=== PATIENT | male | born 1960 | race Caucasian/White ===

== ENCOUNTER 2023-12-09 10:29 | Emergency (ER) | payer OTHER ==
[2023-12-09 10:53] VITALS: BP 125/76; PULSE 91; RESP 18; TEMP 98.7; BMI 33.0
[2023-12-09] MEDS ORDERED: LIDOCAINE 4% PATCH TP ONE (11:18)
[2023-12-09] MEDS ORDERED: ACETAMINOPHEN 500 MG TABLET (FP) ONE (11:19)
[2023-12-09] MEDS ORDERED: METHOCARBAMOL 500 MG TABLET ONE (11:19)
[2023-12-09] MEDS ORDERED: KETOROLAC TROMETHAMINE 30 MG/1 ML VIAL ONE (11:19)
[2023-12-09] MEDS: METHOCARBAMOL 500 MG TABLET PO ONE (11:30)
[2023-12-09] MEDS: KETOROLAC TROMETHAMINE 60 MG/2 ML VIAL IM ONE (11:30)
[2023-12-09] MEDS: LIDOCAINE 5% TOPICAL PATCH TP ONE (11:30)
[2023-12-09] MEDS: ACETAMINOPHEN 500 MG TABLET (FP) PO ONE (11:31)
[2023-12-09] MEDS ORDERED: diazePAM 5 MG TABLET ONE (13:14)
[2023-12-09] MEDS: diazePAM 5 MG TABLET PO ONE (13:16)
[2023-12-09] MEDS ORDERED: LIDOCAINE PATCH REMOVAL MC SCH (22:00)
== END 2023-12-09 15:25 | disposition home or self-care (01) ==
LOC: JER 10:29
PROC: 3E023GC Introduction of Other Therapeutic Substance into Muscle, Percutaneous Approach (ICD-10-PCS; principal; 2023-12-09)
DX: M54.2 Cervicalgia (principal); R20.2 Paresthesia of skin
CPT/HCPCS: 99284-25

== ENCOUNTER 2023-12-29 11:21 | Emergency (ER) | payer OTHER ==
[2023-12-29 11:27] VITALS: BP 135/83; PULSE 84; RESP 18; TEMP 98.1; BMI 33.0
[2023-12-29] MEDS ORDERED: predniSONE 20 MG TABLET (UD) ONE (12:59)
[2023-12-29] MEDS ORDERED: METHOCARBAMOL 500 MG TABLET ONE (12:59)
[2023-12-29] MEDS: METHOCARBAMOL 500 MG TABLET PO ONE (13:00)
[2023-12-29] MEDS: predniSONE 20 MG TABLET (UD) PO ONE (13:00)
== END 2023-12-29 13:33 | disposition home or self-care (01) ==
LOC: JERFT 11:21
DX: M54.2 Cervicalgia (principal)
CPT/HCPCS: 99283-25

== ENCOUNTER 2024-01-22 04:18 | Day surgery (SDC) | payer OTHER ==
[2024-01-18 17:50] VITALS: BMI 33.0
[2024-01-22 07:10] VITALS: RESP 16
[2024-01-22] MEDS ORDERED: BUPIVACAINE HCL/PF 0.5% (5MG/ML) 10 ML VIAL ONE (07:11)
[2024-01-22] MEDS ORDERED: LIDOCAINE HCL 1%, 10 MG/ML (20ML VIAL) ONE (07:11)
[2024-01-22] MEDS ORDERED: DEXAMETHASONE SOD PHOSPHATE 10 MG/1 ML VIAL ONE ×2 (07:12→07:24)
[2024-01-22] MEDS ORDERED: BUPIVACAINE HCL/PF 0.75% 10 ML VIAL ONE (07:12)
[2024-01-22] MEDS: DEXAMETHASONE SOD PHOSPHATE 10 MG/1 ML VIAL IVPUSH ONE (09:11)
[2024-01-22] MEDS: LIDOCAINE HCL 1% PRESERVATIVE FREE - 30ML VIAL IJ ONE (09:11)
[2024-01-22] MEDS: IOHEXOL 180 MG/1 ML ML IJ ONE (09:11)
[2024-01-22 09:27] VITALS: BP 120/75; PULSE 89; TEMP 98.2
[2024-01-22] MEDS ORDERED: ACETAMINOPHEN 500 MG TABLET (FP) PO PRN (15:27)
== END 2024-01-22 09:50 | disposition home or self-care (01) ==
LOC: JASU-SURG 04:18
PROVIDERS: ATTEND Pain Medicine Pain Medicine
PROC: 3E0R3BZ Introduction of Anesthetic Agent into Spinal Canal, Percutaneous Approach (ICD-10-PCS; 2024-01-22)
PROC: 3E0R33Z Introduction of Anti-inflammatory into Spinal Canal, Percutaneous Approach (ICD-10-PCS; principal; 2024-01-22 08:30)
DX: M54.12 Radiculopathy, cervical region (principal)
CPT/HCPCS: 76000-TC-FY; 82962; J1100

== ENCOUNTER 2024-02-26 04:43 | Day surgery (SDC) | payer OTHER ==
[2024-02-25 11:34] VITALS: BMI 33.0
[2024-02-26] MEDS: LIDOCAINE 1% P/F 10 MG/ML VIAL PNB ONE
[2024-02-26] MEDS ORDERED: LIDOCAINE HCL/PF 1% SDV 5ML VIAL ONE (07:16)
[2024-02-26] MEDS ORDERED: BUPIVACAINE HCL/PF 0.5% (5MG/ML) 10 ML VIAL ONE (07:16)
[2024-02-26] MEDS: IOHEXOL 180 MG/1 ML ML IJ ONE ×2 (10:57)
[2024-02-26] MEDS: BUPIVACAINE HCL/PF 0.5% (5MG/ML) 10 ML VIAL PNB ONE ×2 (10:57)
[2024-02-26 11:19] VITALS: BP 126/72; PULSE 80; RESP 16; TEMP 97.8
== END 2024-02-26 11:58 | disposition home or self-care (01) ==
LOC: JASU-SURG 04:43
PROVIDERS: ATTEND Pain Medicine Pain Medicine
PROC: 3E0T33Z Introduction of Anti-inflammatory into Peripheral Nerves and Plexi, Percutaneous Approach (ICD-10-PCS; 2024-02-26)
PROC: 3E0T3BZ Introduction of Anesthetic Agent into Peripheral Nerves and Plexi, Percutaneous Approach (ICD-10-PCS; principal; 2024-02-26 10:30)
DX: M47.812 Spondylosis without myelopathy or radiculopathy, cervical region (principal)
CPT/HCPCS: 76000-TC-FY

== ENCOUNTER 2024-04-22 04:25 | Day surgery (SDC) | payer OTHER ==
[2024-04-20 09:52] VITALS: BMI 32.4
[2024-04-22] MEDS ORDERED: LIDOCAINE HCL/PF 1% SDV 5ML VIAL ONE (07:45)
[2024-04-22] MEDS ORDERED: BUPIVACAINE HCL/PF 0.5% (5MG/ML) 10 ML VIAL ONE (07:45)
[2024-04-22 11:13] VITALS: RESP 18
[2024-04-22] MEDS ORDERED: ACETAMINOPHEN 500 MG TABLET (FP) PO PRN (13:14)
[2024-04-22] MEDS: BUPIVACAINE HCL/PF 0.5% (5MG/ML) 10 ML VIAL IJ ONE (13:31)
[2024-04-22 16:18] VITALS: BP 135/81; PULSE 79; TEMP 98.2
== END 2024-04-22 14:15 | disposition home or self-care (01) ==
LOC: JASU-SURG 04:25
PROVIDERS: ATTEND Pain Medicine Pain Medicine
PROC: 3E0T3BZ Introduction of Anesthetic Agent into Peripheral Nerves and Plexi, Percutaneous Approach (ICD-10-PCS; principal; 2024-04-22 13:15)
DX: M47.812 Spondylosis without myelopathy or radiculopathy, cervical region (principal)
CPT/HCPCS: 76000-TC-FY

== ENCOUNTER 2024-05-13 04:12 | Day surgery (SDC) | payer OTHER ==
[2024-05-11 12:05] VITALS: BMI 32.5
[2024-05-13] MEDS: DEXAMETHASONE SOD PHOSPHATE 10 MG/1 ML VIAL IVPUSH ONE
[2024-05-13] MEDS ORDERED: LIDOCAINE HCL/PF 2% SDV 5ML VIAL ONE (07:10)
[2024-05-13] MEDS ORDERED: LIDOCAINE HCL/PF 1% SDV 5ML VIAL ONE (07:10)
[2024-05-13] MEDS ORDERED: BUPIVACAINE HCL/PF 0.5% (5MG/ML) 10 ML VIAL ONE (07:10)
[2024-05-13] MEDS ORDERED: DEXAMETHASONE SOD PHOSPHATE 10 MG/1 ML VIAL ONE (07:11)
[2024-05-13] MEDS ORDERED: ACETAMINOPHEN 500 MG TABLET (FP) PO PRN (10:54)
[2024-05-13] MEDS: BUPIVACAINE HCL/PF 0.5% (5MG/ML) 10 ML VIAL IJ ONE ×3 (14:36)
[2024-05-13] MEDS: LIDOCAINE HCL 1% PRESERVATIVE FREE - 30ML VIAL IJ ONE ×2 (14:36)
[2024-05-13] MEDS: LIDOCAINE HCL/PF 2% SDV 5ML VIAL INF ONE ×2 (14:49)
[2024-05-13 15:04] VITALS: RESP 18; TEMP 97.8
[2024-05-13 15:35] VITALS: BP 125/76; PULSE 75
== END 2024-05-13 15:20 | disposition home or self-care (01) ==
LOC: JASU-SURG 04:12
PROVIDERS: ATTEND Pain Medicine Pain Medicine
PROC: 01513ZZ Destruction of Cervical Nerve, Percutaneous Approach (ICD-10-PCS; principal; 2024-05-13 14:30)
DX: M47.812 Spondylosis without myelopathy or radiculopathy, cervical region (principal)
CPT/HCPCS: 76000-TC-FY; J1100